=== PATIENT | female | born 1980 | race Caucasian/White ===

== ENCOUNTER → 2023-04-21 09:20 | Outpatient (CLI) | payer OTHER, SELFPAY ==
--- NOTE | 2023-04-21 | DI.MRI.S_ITS ---
PROCEDURE: MR ANKLE RT WO CON INDICATIONS: RIGHT LATERAL FOOT PAIN TECHNIQUE: Noncontrast sagittal T1 spin echo and T2 fast spin echo with fat saturation, axial proton density fast spin echo and T2 fast spin echo with fat saturation, coronal T1 spin echo and T2 fast spin echo with fat saturation through the ankle/hindfoot. COMPARISON: None. FINDINGS: Image quality: Excellent. Bones and joints: Mild marrow edema involving 5th metatarsal shaft is seen, no discrete fracture line is identified. No other area of abnormal marrow signal. No hindfoot coalitions. No osteochondral injuries of the talar dome. No pathologic joint effusions. Medial structures: The posterior tibialis, flexor digitorum longus, and flexor hallucis longus tendons are intact. Small amount of fluid distending flexor tendon sheath is seen. The posterior tibial neurovascular bundle appears normal within the tarsal tunnel, without extrinsic mass effect. The deep layer (anterior and posterior tibiotalar ligaments) and superficial layer (tibionavicular, tibiospring, and tibiocalcaneal ligaments) of the deltoid ligament appear normal. The spring ligament components (superomedial calcaneonavicular, medioplantar oblique calcaneonavicular, and inferoplantar longitudinal ligaments) are intact. Lateral structures: The anterior talofibular, calcaneofibular, and posterior talofibular ligaments appear intact. More superiorly, the anterior and posterior tibiofibular ligaments appear intact, as is the intermalleolar ligament. The tibiofibular syndesmosis is normal in width at 2 mm or less. The peroneus brevis tendon is intact. Tendinosis and low-grade partial-thickness tear involving peroneus longus tendon at the level of mid to distal calcaneus and calcaneocuboid joint is seen. Adjacent bony peroneal tubercle and retrotrochlear prominence are normal in size. The sinus tarsi demonstrates normal fatty signal, without edema, fibrosis, or cyst formation. Visualized sinus tarsi components (cervical ligament, interosseous talocalcaneal ligament, roots of the inferior extensor retinaculum) appear normal. The calcaneonavicular and calcaneocuboid components of the bifurcate ligament appear intact. The dorsal calcaneocuboid ligament appears intact. Anterior structures: The tibialis anterior, extensor hallucis longus, and extensor digitorum longus tendons appear intact. The dorsal talonavicular ligament appears intact. Posterior and plantar structures: Achilles tendon is intact. Medial and lateral bands of the plantar fascia are of normal thickness. No abductor digiti quinti muscle atrophy to suggest Velasquez neuropathy. IMPRESSION: 1. Finding suggestive of mild bony contusion versus stress related changes involving 5th metatarsal shaft. No fracture or dislocation is noted in visualized midfoot and hindfoot. No suspicious bony lesions. No osteochondral injuries of talar dome. 2. Very low-grade tenosynovitis involving flexor tendons. 3. Tendinosis and low-grade intrasubstance partial-thickness tear involving peroneus longus tendon as above. 4. Medial and lateral ankle ligaments are intact. Dictated by: Gualberto Sal M.D. on 04/21/2023 at 11:41 Approved by: Gualberto Sal M.D. on 04/21/2023 at 11:44
== END ==
PROVIDERS: Referring Provider Podiatrist; Visit Provider Podiatrist
DX: M65.9 Synovitis and tenosynovitis, unspecified (principal)
CPT/HCPCS: 73721

== ENCOUNTER 2024-07-12 09:11 | Day surgery (SDC) | payer OTHER, SELFPAY ==
--- NOTE | 2024-07-12 09:28 | PM.HP.1 ---
History of Present Illness History of Present Illness Date Patient Seen: 07/12/24 Chief complaint: EGD w/poss bx Narrative: GE reflux [facility] Medical History (Updated 07/12/24 @ 09:26 by Kade Cates RN) Dysphagia GERD (gastroesophageal reflux disease) Meds Home Medications and Allergies Allergies Allergy/AdvReac Type Severity Reaction Status Date / Time No Known Drug Allergies Allergy Verified 07/12/24 09:26 Exam Narrative Exam Narrative: Oropharynx free of lesions Chest clear to auscultation percussion Cardiac exam reveals no S3 or murmur Assessment & Plan Assessment & Plan narrative: GE reflux need for EGD to rule out significant esophagitis. Risks, benefits, alternatives have been explained. Time-Based Coding :: [TOTAL MINUTES] spent with patient and on the chart (including review of chart, obtaining history, exam, reviewing outside data, placing orders, documenting exam and treatment plan, and counseling patient) on [DATE].
--- NOTE | 2024-07-12 09:29 | PM.OP.EGD ---
Operative Date/Time/Diagnoses Date of procedure: 07/12/24 Pre-op diagnosis: See indication and findings Procedure & Clinicians Study performed: EGD Indications: GE reflux Surgeon: Edi Tobar Procedure Notes Procedure in detail: After informed consent was obtained the patient was placed in left lateral decubitus position. The video upper scope was placed into the oropharynx and with the patient's help swallowed into the esophagus. The esophagus stomach and duodenum were carefully examined. On withdrawal retroflexed view the GE junction was performed. The scope was removed. Patient tolerated procedure well. Blood loss none Complications none Sedation mac Findings 1. Significant clear fluid in the hypopharynx and esophagus 2. Wide open lower esophageal sphincter 3. 3-4 cm hiatal hernia Four. Significant fluid in the stomach some clear and more distally bile stained 5. Normal duodenal bulb and sweep Patient is to stay on her current medications and follow up with GI primarily for additional problems. She should also follow an anti-reflux diet
[2024-07-12 09:37] VITALS: BP 134/82; PULSE 76; RESP 18; TEMP 36.5; O2SAT 99
[2024-07-12] MEDS: LACTATED RINGERS 1,000 ML 42 ML IV (09:40)
[2024-07-12 09:52] LABS: COVID19 -Nasal RAPID Negative (Negative)
--- NOTE | 2024-07-12 10:15 | SUR.OPER ---
EGD SCOPE 048
[2024-07-12 10:31] VITALS: BP 118/76; PULSE 70; RESP 19; TEMP 36.8; O2SAT 98
[2024-07-12 10:36] VITALS: BP 125/80; PULSE 74; RESP 13; O2SAT 98
[2024-07-12 10:41] VITALS: BP 121/78; PULSE 69; RESP 14; O2SAT 95
[2024-07-12 10:44] VITALS: BP 121/78; PULSE 74; RESP 14; TEMP 36.1; O2SAT 98
== END 2024-07-12 10:58 | disposition home or self-care (01) ==
PROVIDERS: PCP Nurse Practitioner Family; Referring Provider Internal Medicine Gastroenterology; Visit Provider Internal Medicine Gastroenterology
PROC: 0DJ08ZZ Inspection of Upper Intestinal Tract, Via Natural or Artificial Opening Endoscopic (ICD-10-PCS; CPT 43235; principal; 2024-07-12 10:30)
DX: K21.9 Gastro-esophageal reflux disease without esophagitis (principal); K44.9 Diaphragmatic hernia without obstruction or gangrene; K92.89 Other specified diseases of the digestive system; Z11.52 Encounter for screening for COVID-19
CPT/HCPCS: 43235; 87635; J2704

== ENCOUNTER → 2024-11-13 15:40 | Outpatient (CLI) | payer OTHER, SELFPAY ==
--- NOTE | 2024-11-13 15:47 | DI.MRI.S_ITS ---
PROCEDURE: MR ANKLE LT WO CON INDICATIONS: LEFT ANKLE PAIN TECHNIQUE: Noncontrast sagittal T1 spin echo and T2 fast spin echo with fat saturation, axial proton density fast spin echo and T2 fast spin echo with fat saturation, coronal T1 spin echo and T2 fast spin echo with fat saturation through the ankle/hindfoot. COMPARISON: [facility], MR, MR ANKLE RT WO CON, 04/21/2023, 9:34. [facility], MR, MR ANKLE RT WO CON, 11/13/2024, 15:54. FINDINGS: Image quality: Excellent Tendons: Mild tenosynovitis of the posterior tibialis. The flexor digitorum longus is unremarkable. The flexor hallucis longus is unremarkable. The extensor tendons are unremarkable. Mild tenosynovitis of the peroneal tendons, without tear. Mild peritendinitis of the peroneal brevis about the insertion at the 5th metatarsal base. The distal Achilles tendon is unremarkable. Ligaments: The anterior and the posterior tibiofibular ligament are intact. The anterior and the posterior talofibular ligament are intact. The calcaneofibular ligament is intact. The deep portion of the deltoid ligament is intact. Sinus tarsi: No fibrosis Plantar fascia: Thickening of the central cord, representing plantar fasciitis. Muscles: Normal in signal Bones: Normal in signal. Mild degenerative changes in the midfoot. IMPRESSION: 1. Mild tenosynovitis of the peroneal tendons. Mild peritendinitis of the peroneal brevis about the insertion at the 5th metatarsal base. No tear of the peroneal tendons. 2. Plantar fasciitis. 3. Mild degenerative change of the midfoot. Dictated by: Lucy Farley M.D. on 11/14/2024 at 9:45 Approved by: Lucy Farley M.D. on 11/14/2024 at 9:58
--- NOTE | 2024-11-13 15:57 | DI.MRI.S_ITS ---
PROCEDURE: MR ANKLE RT WO CON INDICATIONS: pain in the right ankle and joints of the right ankle TECHNIQUE: Noncontrast sagittal T1 spin echo and T2 fast spin echo with fat saturation, axial proton density fast spin echo and T2 fast spin echo with fat saturation, coronal T1 spin echo and T2 fast spin echo with fat saturation through the ankle/hindfoot. COMPARISON: [facility], MR, MR ANKLE RT WO CON, 04/21/2023, 9:34. FINDINGS: Image quality: Excellent. Bones: Mild marrow edema is present at the plantar-lateral aspects of the cuboid (6/8-12). The bone marrow signal is otherwise normal. The anterior process of the calcaneus and lateral process of the talus are intact. No talar dome osteochondral defect is seen. Joints: There is no significant joint effusion. Mild scattered midfoot osteoarthritis is present. The tibiotalar and subtalar joints are preserved. Sinus tarsi: The sinus tarsi signal is normal. Syndesmotic ligaments: The anterior and posterior inferior syndesmotic ligaments are normal. Lateral collateral ligament: There is mild thickening of the anterior talofibular and calcaneofibular ligaments with mild osseous remodeling at the tip of the lateral malleolus. The posterior talofibular ligament is intact. Deltoid ligament: The visualized components of the deltoid ligament, that being the posterior tibiotalar and tibiospring ligaments, are normal. Calcaneonavicular spring ligament: The superomedial component of the calcaneonavicular spring ligament is grossly intact. Tendons: The Achilles tendon is normal. The extensor, flexor and peroneal tendons are normal. The peroneal tendons are appropriately situated within the retromalleolar groove, and the superficial peroneal retinaculum is intact. Plantar aponeurosis: There is no abnormal thickening of, abnormal intrasubstance signal involving, or perifascial edema about the plantar aponeurosis. Plantar musculature: There are no findings of denervation involving the plantar muscles of the foot. Nerves: The visualized nerves are unremarkable. Other: There is mild thickening of the accessory anterior-inferior tibiofibular ligament with adjacent edema and low signal fibrosis (7/11; 8/16) in the anterolateral joint space. IMPRESSION: 1. Thickening of the accessory anterior-inferior tibiofibular ligament and adjacent edema/fibrosis, which can be seen in the setting of anterolateral ankle impingement pathology. Please correlate with physical exam and clinical history for concordance. 2. Chronic sprains of the anterior talofibular and calcaneofibular ligaments. 3. Mild scattered midfoot osteoarthritis with corresponding marrow edema. Dictated by: Eleazar Jeong M.D. on 11/14/2024 at 20:34 Approved by: Eleazar Jeong M.D. on 11/14/2024 at 20:46
== END ==
LOC: MRI 15:41
PROVIDERS: PCP Nurse Practitioner Family; Referring Provider Podiatrist; Visit Provider Podiatrist
DX: M76.72 Peroneal tendinitis, left leg (principal); M72.2 Plantar fascial fibromatosis; S93.491A Sprain of other ligament of right ankle, initial encounter; S93.411A Sprain of calcaneofibular ligament of right ankle, initial encounter; M19.071 Primary osteoarthritis, right ankle and foot; M25.571 Pain in right ankle and joints of right foot
CPT/HCPCS: 73721

== ENCOUNTER 2025-06-14 13:30 | Day surgery (SDC) | payer OTHER, SELFPAY ==
[2025-06-08 14:57] VITALS: BMI 42.3
[2025-06-14] VITALS (10 sets, daily range): BP systolic 120–138; BP diastolic 58–83; PULSE 60–85; RESP 12–20; TEMP 36.1–36.8; O2SAT 93–99; BMI 42.4
--- NOTE | 2025-06-14 | PATH_ITS ---
[facility] Accession Number: [id number] No. of containers..01 Tissue . 01 Material submitted: . fallopian tube - BILATERAL FALLOPIAN TUBES . 01 Diagnosis: BILATERAL FALLOPIAN TUBES, SALPINGECTOMY: Complete cross-sections of bilateral fimbriated fallopian tubes with benign paratubal cyst. See comment. MRV 06/19/2025 1118 Local . 01 Comment: The shorter fallopian tube is remarkable for a small focus of endometrium present in the adjacent paratubal tissue. This may likely represent tissue from uterine horn. . 01 Electronically signed: . Baylee Sy MD, Pathologist NPI- [id number] . 01 Gross description: . Received in formalin with two identifiers and bilateral fallopian tubes, are two unoriented, fimbriated fallopian tubes, 5.0 x 1.0 cm and 4.9 x 0.8 cm. Both tubes have violaceous, smooth serosa with attached adipose and cystic structures up to 0.3 cm in greatest dimension filled with cloudy serous fluid. The lumens are stellate and unremarkable. Road Builder sections to include one-half of bisected fimbriae and cross-sections are submitted as follows: . A1: Longer fallopian tube. A2: [place] fallopian tube. ([id number]) /MRV 06/15/2025 1722 Local . 01 Pathologist provided ICD-10: Z30.2 . 01 CPT . 730185 Specimen Comment: A courtesy copy of this report has been sent to [phone] Performed at: [address] [address], [place], [place] [id number] MD Sami Gallegos MD Phone: [phone]
[2025-06-14] MEDS: ACETAMINOPHEN 325 MG TABLET 975 MG PO (14:36)
[2025-06-14] MEDS: SCOPOLAMINE 1 PATCH TOP (14:37)
[2025-06-14] MEDS: FAMOTIDINE 20 MG/2 ML VIAL IV (14:38)
[2025-06-14] MEDS: LACTATED RINGERS 1,000 ML 42 ML IV ×2 (14:38→17:18)
--- NOTE | 2025-06-14 15:45 | PM.PREOP ---
Pre-operative Note COVID-19 COVID-19 status: Not tested Interval Note History & Physical reviewed/Exam performed by Physician: Yes Changes to H&P: No
--- NOTE | 2025-06-14 16:24 | SUR.OPER ---
Lithotomy on padded OR bed, head on pillow, arms secured on padded arm boards at <90 degrees abduction. Legs secured in padded yellow fins stirrups.
[2025-06-14] MEDS: BUPIVACAINE 0.5% W/ EPI (PF) 30 ML VIAL INJ (16:31)
[2025-06-14] MEDS: hydrOXYzine 50 MG/ML INJ 25 MG IM (17:15)
[2025-06-14] MEDS: ONDANSETRON 4 MG/2 ML INJ IV (17:16)
[2025-06-14] MEDS: METOCLOPRAMIDE 10 MG/2 ML INJ IV (17:35)
--- NOTE | 2025-06-14 17:55 | SUR.PHASEI ---
1750 Pt reports she is feeling better after Sugammadex given by Barbara DOLAN at 1740 due to pt reporting that it was difficult to take a deep breath and generalized weakness. Pt able to move all extremities at that point and use Incentive Spirometer up to 2000ml. Pt also reported feeling shivery. Sharla toussainter applied. This has now also resolved.
--- NOTE | 2025-06-29 11:05 | P.OP_ITS ---
Operative Date/Time/Diagnoses Date of procedure: 06/14/25 Time of procedure: 15:00 Pre-op diagnosis: Request for sterilization Post-op diagnosis: same Procedure & Clinicians Procedure: Procedures Operation Date: 06/14/25 14:45 Actual Procedure Side Surgeon p Laparoscopic Bilateral Salpingectomy Bilateral José Luis Jett MD Indications: Melony is a 44-year-old nulligravida (by choice) whose last menstrual period was 04/21/2025, who presents today to discuss sterilization. Patient experienced menarche at age 16 and has had regular predictable menses throughout her reproductive years. Paps have always been normal and her Pap is current. She denies any intermenstrual bleeding or postcoital bleeding. She has no other how should health issues and has never had abdominal surgery. Patient has had 2 IUDs in the past, both a Mirena and a ParaGard, but does not want to consider IUD use again at this time. Her partner is planning to get a vasectomy but she herself wants to make sure that she can not bear children. Patient counseled regarding alternatives, risks, benefits, and potential complications associated with laparoscopic bilateral salpingectomy. She understands that this is a procedure which will result in her irreversibly and permanently being unable to bear children without benefit of assisted reproductive technology. She further understands that there is a small (1-12/999) chance of failing to prevent in that should a occur it is most likely going to be ectopic in location. With full understanding of the above she wishes to proceed with robotic assisted laparoscopic bilateral salpingectomy, and she presents today for her scheduled surgery. 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 The left tube and ovary are normal as is the right tube and ovary. The anterior cul-de-sac and posterior cul-de-sacs are free of any abnormality and the remainder of the abdomen/pelvis is normal to laparoscopic inspection. Closure Type: primary Specimen(s): left tube and right tube Applied: none Estimated blood loss (mL): 5 Blood products transfused: none Procedure in detail: With the patient under satisfactory general anesthesia in the modified dorsal lithotomy position, the perineum, vagina, and abdomen were prepped and draped for IUD removal and laparoscopic bilateral salpingectomy. A pre-surgical safety time-out was then taken in accordance with [facility] Main OR protocols. The umbilicus was then infiltrated with 0.5% Marcaine with epinephrine and 1 cm vertical incision was made in the inferior aspect of the umbilicus. Veress needle was used to insufflate the abdomen with carbon dioxide and once appropriately insufflated, 5 mm bladeless trocar and sleeve were inserted through the incision. Proper placement of the sleeve was confirmed with laparoscopic visualization and insufflation of the abdomen continued. A 2nd and 3rd 5 mm laparoscopic port were placed in the right and left mid quadrants using a similar technique and using a 3 puncture technique, the abdomen and pelvis were visualized with the findings as noted above. The distal aspect of the left fallopian tube was then grasped with a grasping forceps and using a Power Seal device, fimbria ovarica was coagulated and divided the dissection using the Power Seal continuing across the mesosalpinx to the cornua where the base fallopian tube was coagulated and divided. The left fallopian tube was then removed through one of the ports and submitted pathologic specimen. Attention was then turned to the right adnexa with distal tube grasped with a grasping forcep. The Power Seal device was then used to coagulate fimbria ovarica and the dissection was carried across the mesosalpinx to the cornua where the fallopian tube on the right side was amputated at the cornua following coagulation proximal tube the Power Seal device. Pelvis was inspected and there were no abnormalities noted following bilateral salpingectomy. The pneumoperitoneum was then vented and the ports removed from the abdominal wall. Port incisions were then closed with 4-0 Monocryl using inverted interrupted stitches and skin glue was applied. Appropriate dressings were then applied, patient was awakened, and transferred to the PACU for a period of observation after having tolerated the procedure well. Complications: none Post-operative Condition: stable Disposition: PACU Plan for aftercare: Routine postoperative care with follow-up planned for 2 weeks after surgery or as needed
== END 2025-06-14 18:10 | disposition home or self-care (01) ==
PROVIDERS: Referring Provider Obstetrics & Gynecology; Visit Provider Obstetrics & Gynecology
PROC: 0UT74ZZ Resection of Bilateral Fallopian Tubes, Percutaneous Endoscopic Approach (ICD-10-PCS; CPT 58661; principal; 2025-06-14 14:45)
DX: Z30.2 Encounter for sterilization (principal)
CPT/HCPCS: 58661; J0330; J1100; J1885; J2250; J2405; J2704; J2765; J3010; J3410; J3490

== ENCOUNTER 2025-08-14 20:18 | Emergency (ER) | payer OTHER, SELFPAY ==
[2025-08-14 20:29] VITALS: BP 134/74; PULSE 86; RESP 16; TEMP 36.5; O2SAT 97; BMI 41.1
== END 2025-08-14 20:53 | disposition left against medical advice (07) ==
PROVIDERS: Emergency Provider Emergency Medicine
CPT/HCPCS: 99281

== ENCOUNTER → 2025-09-20 09:57 | Outpatient (CLI) | payer OTHER, SELFPAY | PROVIDERS: Referring Provider Nurse Practitioner Family; Visit Provider Nurse Practitioner Family | DX: R06.02 Shortness of breath (principal); R94.2 Abnormal results of pulmonary function studies | CPT/HCPCS: 94060; 94726; 94729 ==